=== PATIENT | female | born 1955 | race Caucasian/White ===

== ENCOUNTER 2022-05-12 15:07 | Emergency (ER) | payer MEDICARE, BC ==
[~2022-05-12] VITALS: Ht 162.6 cm; Wt 81.6 kg
[2022-05-12 15:52] LABS: *BILIRUBIN,URIN NEGATIVE (NEGATIVE); *BLOOD, URINE 2+ (NEGATIVE); *CLARITY,URINE CLEAR (CLEAR); *COLOR,URINE YELLOW (YELLOW); *KETONES,URINE NEGATIVE (NEGATIVE); *UROBILINOGEN,URINE 0.2 E.U./dl (NORMAL); LEUKOCYTE ESTERASE ,URINE NEGATIVE (NEGATIVE); NITRITE, URINE NEGATIVE (NEGATIVE); PH,URINE 5.5 (5.0-8.0); UGLUCOSE NEGATIVE (NEGATIVE)
[2022-05-12 15:56] LABS: BACTERIA,URINE NONE SEEN /HPF (NONE SEEN); SQUAMOUS EPITHELIAL CELL,UR FEW /HPF (NONE SEEN); WBC,URINE 0-3 /HPF (0-3)
[2022-05-12 16:02] LABS: HEMATOCRIT 40.5 % (31.2-41.9); MEAN CORPUSCULAR VOLUME 89.6 fL (75.5-95.3); PLATELET COUNT (AUTO) 309 K/uL (179-408)
[2022-05-12 16:05] LABS: CREATININE 0.8 mg/dL (0.6-1.3); POTASSIUM 4.6 mmol/L (3.5-5.1)
[2022-05-12 16:11] LABS: BILIRUBIN,DIRECT 0.1 mg/dL (0.0-0.2); BILIRUBIN,TOTAL 0.5 mg/dL (0.2-1.0); TOTAL PROTEIN, SERUM 7.8 g/dL (6.4-8.2)
[2022-05-12] MEDS ORDERED: AMOX-430 PO (17:20)
[2022-05-12] MEDS ORDERED: IBUP-1955 PO (17:20)
--- NOTE | 2022-05-12 17:40 | NUR ---
Patient discharged to home in stable condition. Written and verbal after care instructions given. Patient verbalizes understanding of instructions. Stressed follow up or return to ER for worsening s/s.
[2022-05-12 17:44] VITALS: BP 135/73
== END 2022-05-12 17:40 | disposition home or self-care (01) ==
LOC: ER 15:07
DX: K57.32 Diverticulitis of large intestine without perforation or abscess without bleeding (principal); N28.89 Other specified disorders of kidney and ureter
CPT/HCPCS: 36415; 83690; 85025; A4663

== ENCOUNTER 2024-04-23 11:32 | Inpatient (IN) | payer MEDICARE, BC ==
[~2024-04-23] VITALS: Ht 162.6 cm; Wt 78.0 kg
[~2024-04-23 11:32] MED LIST: AMOX-430 PO; IBUP-1955 PO
[2024-04-23] MEDS: IV NORMAL SALINE 1000 ML BAG IV ONE (13:00)
[2024-04-23 13:02] LABS: BASOPHILS # (AUTO) 0.2 K/UL (0.0-0.2); BASOPHILS % (AUTO) 0.8 % (0.0-2.0); EOSINOPHILS % (AUTO) 0.1 % (0.0-7.0); HEMATOCRIT 41.1 % (31.2-41.9); LYMPHOCYTES # (AUTO) 1.4 K/uL (0.8-4.8); LYMPHOCYTES % (AUTO) 6.9 % (20.5-51.5); MEAN CORPUSCULAR HEMOGLOBIN 30.6 uug (24.7-32.8); MEAN CORPUSCULAR HGB CONC 34 g/dL (32.3-35.6); MONOCYTES # (AUTO) 1.1 K/uL (0.1-1.30); MONOCYTES % (AUTO) 5.4 % (0.0-11.0); NEUTROPHILS # (AUTO) 17.9 K/uL (1.8-8.9); NEUTROPHILS % (AUTO) 86.8 % (38.5-71.5); PLATELET COUNT (AUTO) 328 K/uL (179-408); RED BLOOD CELL COUNT(AUTO) 4.57 MIL/uL (3.63-4.92); RED CELL DISTRIBUTION WIDTH 13.1 % (12.3-17.7); WHITE BLOOD COUNT (AUTO) 20.6 K/uL (3.8-11.8)
[2024-04-23 13:03] LABS: DIFFERENTIAL COMMENT 1
[2024-04-23 13:06] LABS: *BILIRUBIN,URIN NEGATIVE (NEGATIVE); *BLOOD, URINE 2+ (NEGATIVE); *CLARITY,URINE CLEAR (CLEAR); *COLOR,URINE YELLOW (YELLOW); *KETONES,URINE TRACE (NEGATIVE); *PROTEIN,URINE NEGATIVE (NEGATIVE); *UROBILINOGEN,URINE 0.2 E.U./dl (NORMAL); LEUKOCYTE ESTERASE ,URINE NEGATIVE (NEGATIVE); NITRITE, URINE NEGATIVE (NEGATIVE); PH,URINE 6.5 (5.0-8.0); UGLUCOSE NEGATIVE (NEGATIVE)
[2024-04-23 13:09] LABS: CREATININE 0.9 mg/dL (0.6-1.3); POTASSIUM 3.4 mmol/L (3.5-5.1)
[2024-04-23 13:15] LABS: ALBUMIN 3.2 g/dL (3.4-5.0); BILIRUBIN,DIRECT 0.1 mg/dL (0.0-0.2); BILIRUBIN,TOTAL 0.7 mg/dL (0.2-1.0); TOTAL PROTEIN, SERUM 8.1 g/dL (6.4-8.2)
[2024-04-23 13:27] LABS: BACTERIA,URINE NONE SEEN /HPF (NONE SEEN); SQUAMOUS EPITHELIAL CELL,UR NONE SEEN /HPF (NONE SEEN); WBC,URINE NONE SEEN /HPF (0-3)
[2024-04-23] MEDS ORDERED: PIPERACILLIN/TAZOBACTAM/D5W 50 ML IV ONE (13:31)
[2024-04-23] MEDS: PIPERACILLIN SODIUM/TAZOBACTAM 3.375 G in IV DEXTROSE 5% 50 ML IV ONE (13:40)
[2024-04-23] MEDS ORDERED: SWABABLE VALVE TRANSFER SET EA MC ONE (13:42)
[2024-04-23] MEDS ORDERED: IOHEXOL 300MG/ML 100 ML INFUS..BTL ONE (13:42)
[2024-04-23] MEDS ORDERED: IV NORMAL SALINE 250 ML IV ONE (13:43)
[2024-04-23] MEDS ORDERED: REMEDY ESSENTIAL ZINC PASTE 113 GM TP PRN (15:15)
[2024-04-23] MEDS ORDERED: ONDANSETRON 4 MG/2 ML VIAL IV PRN (15:15)
[2024-04-23] MEDS ORDERED: MAGNESIUM HYDROXIDE 30 ML LIQUID UDC PO PRN (15:15)
[2024-04-23] MEDS ORDERED: MORPHINE SULFATE 2 MG/1 ML DISP.SYRIN ONE (17:01)
[2024-04-23] MEDS: MORPHINE SULFATE 2 MG/1 ML DISP.SYRIN IV ONE (17:06)
[2024-04-23] MEDS: ONDANSETRON 4 MG/2 ML VIAL IV ONE (17:08)
[2024-04-23 22:00] VITALS: BP 105/54; TEMP 98.7; O2SAT 96
[2024-04-23 22:05] VITALS: BP 99/47; TEMP 98.7; O2SAT 93
[2024-04-24] MEDS: IV 1/2NS 1000 ML 1,000 ML IV PRN (05:53)
[2024-04-24 06:18] VITALS: BP 106/45; TEMP 97.7; O2SAT 96
[2024-04-24 06:40] LABS: BASOPHILS # (AUTO) 0.1 K/UL (0.0-0.2); BASOPHILS % (AUTO) 0.6 % (0.0-2.0); EOSINOPHILS # (AUTO) 0.2 K/uL (0.0-0.7); HEMATOCRIT 37.9 % (31.2-41.9); HEMOGLOBIN 13.1 g/dL (10.9-14.3); LYMPHOCYTES # (AUTO) 2.3 K/uL (0.8-4.8); LYMPHOCYTES % (AUTO) 14.8 % (20.5-51.5); MEAN CORPUSCULAR HEMOGLOBIN 31.1 uug (24.7-32.8); MEAN CORPUSCULAR HGB CONC 35 g/dL (32.3-35.6); MONOCYTES # (AUTO) 0.9 K/uL (0.1-1.30); NEUTROPHILS # (AUTO) 12.1 K/uL (1.8-8.9); NEUTROPHILS % (AUTO) 77.6 % (38.5-71.5); PLATELET COUNT (AUTO) 325 K/uL (179-408); RED BLOOD CELL COUNT(AUTO) 4.21 MIL/uL (3.63-4.92); RED CELL DISTRIBUTION WIDTH 13.2 % (12.3-17.7); WHITE BLOOD COUNT (AUTO) 15.6 K/uL (3.8-11.8)
[2024-04-24 06:50] LABS: DIFFERENTIAL COMMENT 1
[2024-04-24 07:14] LABS: CALCIUM 8.8 mg/dL (8.5-10.1); CREATININE 0.8 mg/dL (0.6-1.3); MAGNESIUM 2.2 mg/dL (1.8-2.4); PHOSPHOROUS 3.3 mg/dL (2.5-4.9); POTASSIUM 4.7 mmol/L (3.5-5.1)
[2024-04-24] MEDS: PANTOPRAZOLE SODIUM 40 MG VIAL IV SCH (10:29)
[2024-04-24] MEDS ORDERED: ASPI81TA31 PO (11:30)
[2024-04-24] MEDS ORDERED: MULT-1045 PO (11:30)
[2024-04-24 12:01] VITALS: BP 115/44; TEMP 98.4
[2024-04-24 15:43] VITALS: BP 109/49; TEMP 98; O2SAT 96
[2024-04-24] MEDS ORDERED: PIPERACILLIN SODIUM/TAZOBACTAM 3.375 G in IV DEXTROSE 5% 50 ML IV SCH (16:30)
[2024-04-24] MEDS ORDERED: METR500T PO (16:32)
[2024-04-24] MEDS ORDERED: CIPR500S3 PO (16:32)
[2024-04-24 19:50] VITALS: BP 123/48; TEMP 98.3; O2SAT 93
[2024-04-24 20:00] VITALS: BP 123/59; TEMP 98.3; O2SAT 94
[2024-04-24] MEDS: PIPERACILLIN SODIUM/TAZOBACTAM 3.375 G in IV DEXTROSE 5% 100 ML IV SCH (22:53)
[2024-04-24] MEDS: ACETAMINOPHEN 325 MG TABLET PO PRN (23:18)
[2024-04-25 06:50] VITALS: BP 123/45; TEMP 98.3; O2SAT 96
[2024-04-25 07:59] LABS: CALCIUM 8.6 mg/dL (8.5-10.1); CREATININE 0.8 mg/dL (0.6-1.3); MAGNESIUM 1.9 mg/dL (1.8-2.4); PHOSPHOROUS 3.3 mg/dL (2.5-4.9)
[2024-04-25 08:00] LABS: BASOPHILS # (AUTO) 0.1 K/UL (0.0-0.2); BASOPHILS % (AUTO) 0.4 % (0.0-2.0); EOSINOPHILS # (AUTO) 0.1 K/uL (0.0-0.7); EOSINOPHILS % (AUTO) 0.8 % (0.0-7.0); HEMATOCRIT 36.8 % (31.2-41.9); HEMOGLOBIN 12.8 g/dL (10.9-14.3); LYMPHOCYTES # (AUTO) 1.2 K/uL (0.8-4.8); LYMPHOCYTES % (AUTO) 7.4 % (20.5-51.5); MEAN CORPUSCULAR HGB CONC 35 g/dL (32.3-35.6); MEAN CORPUSCULAR VOLUME 89.4 fL (75.5-95.3); MONOCYTES # (AUTO) 0.9 K/uL (0.1-1.30); MONOCYTES % (AUTO) 5.5 % (0.0-11.0); NEUTROPHILS # (AUTO) 13.5 K/uL (1.8-8.9); NEUTROPHILS % (AUTO) 85.9 % (38.5-71.5); PLATELET COUNT (AUTO) 306 K/uL (179-408); RED BLOOD CELL COUNT(AUTO) 4.12 MIL/uL (3.63-4.92); RED CELL DISTRIBUTION WIDTH 12.9 % (12.3-17.7); WHITE BLOOD COUNT (AUTO) 15.7 K/uL (3.8-11.8)
[2024-04-25 08:09] LABS: DIFFERENTIAL COMMENT 1
[2024-04-25] MEDS: ASPIRIN 81 MG TAB.CHEW PO SCH (08:51)
[2024-04-25] MEDS: MULTIVITAMINS,THERAPEUTIC TABLET PO SCH (08:51)
[2024-04-25] MEDS ORDERED: Medication Not On Formulary EA (Multivitamin (Multi-Vitamin Daily) 1 EACH) PO SCH (09:00)
[2024-04-25] MEDS: POTASSIUM CHLORIDE 20 MEQ POWDER PACKET PO ONE (10:38)
[2024-04-25 11:55] VITALS: BP 117/55; TEMP 97.8; O2SAT 96
[2024-04-25] MEDS ORDERED: POTASSIUM CHLORIDE 20 MEQ POWDER PACKET PO ONE (13:00)
[2024-04-25] MEDS: POTASSIUM CHLORIDE 20 MEQ TAB.PRT.SR PO ONE (13:29)
[2024-04-25 14:30] VITALS: BP 132/54; TEMP 97.1; O2SAT 100
[2024-04-25] MEDS ORDERED: CIPR-262 PO (15:27)
[2024-04-26] MEDS ORDERED: PANTOPRAZOLE SODIUM 40 MG TABLET.DR PO SCH (07:00)
== END 2024-04-25 15:20 | disposition home or self-care (01) | DRG 392 ==
LOC: ER 11:32 → MEDSURG3 21:17
PROVIDERS: ADMIT Student in an Organized Health Care Education/Training Program; ATTEND Student in an Organized Health Care Education/Training Program
DX: K57.32 Diverticulitis of large intestine without perforation or abscess without bleeding (principal); E44.1 Mild protein-calorie malnutrition; E87.6 Hypokalemia; Z88.5 Allergy status to narcotic agent; Z90.710 Acquired absence of both cervix and uterus; Z68.29 Body mass index [BMI] 29.0-29.9, adult
CPT/HCPCS: 36415; 83605; 83735; 84100; 85025; 87040; A4606; A4663; G0378; J2270; J2405; J2470; J2543; J7040; Q9967